=== PATIENT | male | born 1945 | race Hispanic/Latino ===

== ENCOUNTER 2017-06-30 13:05 | Emergency (ER) | payer MEDICARE ==
[2017-06-30 13:15] VITALS: RESP 18
--- NOTE | 2017-06-30 13:36 | ED PDOC ---
Upper Extremity Pain/Injury Time Seen by Provider: 06/30/17 13:20 Chief Complaint (Nursing): Finger,Hand,&Wrist Chief Complaint (Provider): Right Finger Injury History Per: Patient History/Exam Limitations: no limitations Onset/Duration Of Symptoms: Mins Current Symptoms Are (Timing): Still Present Additional Complaint(s): Modesto Parmar is a 71 year old right hand dominant male that presents to the ED after the second digit on his right hand was crushed under a hand-operated forklift. Patient reports throbbing pain to his finger, has no range of motion to the digit, and is actively bleeding. Tetanus not UTD. Past Medical History Reviewed: Historical Data, Nursing Documentation, Vital Signs Vital Signs: Last Vital Signs Temp 97 F L 06/30/17 13:11 Pulse 96 H 06/30/17 13:11 Resp 18 06/30/17 13:11 BP 143/88 06/30/17 13:11 Pulse Ox 99 06/30/17 13:11 - Medical History PMH: HTN - Family History Family History: States: Unknown Family Hx - Immunization History Hx Tetanus Toxoid Vaccination: No - Allergies Allergies/Adverse Reactions: Allergies Allergy/AdvReac Type Severity Reaction Status Date / Time strawberry Allergy RASH Verified 06/30/17 13:11 Review of Systems Musculoskeletal: Positive for: Hand Pain (second digit of right hand pain) Physical Exam - Reviewed Nursing Documentation Reviewed: Yes Vital Signs Reviewed: Yes - Physical Exam Appears: Positive for: Non-toxic, No Acute Distress Head Exam: Positive for: ATRAUMATIC, NORMOCEPHALIC Skin: Positive for: Normal Color, Warm Eye Exam: Positive for: Normal appearance, EOMI, PERRL Pulses-Radial (L): 2+ Pulses-Radial (R): 2+ Extremity: Positive for: Swelling (second digit of right hand), Other (Evidence of full separation noted to second digit on dorsal aspect of finger, volar aspect is intact. Injury to muscle, questionable complete avulsion of the bone. ). Negative for: Normal ROM (no ROM to second digit of right hand) - Laboratory Results Result Diagrams: 06/30/17 14:10 06/30/17 14:10 - ECG O2 Sat by Pulse Oximetry: 99 (RA) Pulse Ox Interpretation: Normal Medical Decision Making Medical Decision Making: Impression: Injury to Second Digit of Right Hand Plan: * X-Ray Right Hand * Toradol 30 mg IV * Type and Screen * CMP * CBC * PTT * PT * Reevaluation 13:36 Patient close to vasovagal syncope while being brought to X-Ray. Patient brought back to Holding, given O2 and IV fluids. 13:54 Patient developed chest pain and palpitations likely due to anxiety, will be checking troponin. 14:10 Dr. Aguayo spoke to Dr. Harden, who stated that [facility] does not have the appropriate microscopic equipment needed for microscopic implantation at this time, requiring the patient to be transferred. Dr. Aguayo then spoke to [facility], patient is pending possible transfer. Patient's EKG NSR with rate 71, normal QRS. Patient is stable. 14:55 Dr. Alvarado at [facility] was contacted by Dr. Aguayo at 14:15, declined transfer. Dr. Aguayo then called [facility], spoke to ER, plastic specialist was paged at 14:20 and 14:45. Call was now placed to [facility]. 15:10 Dr. Aguayo spoke to [facility], Dr. Shahid, hand surgeon, will accept patient. Patient will be an ER to ER transfer. 15:26 Patient will be given Ancef. pt is stable for transfer Scribe Attestation: Documented by Gianna Pollock, acting as a scribe for Erica Raphael PA-C. Provider Scribe Attestation: All medical record entries made by the Scribe were at my direction and personally dictated by me. I have reviewed the chart and agree that the record accurately reflects my personal performance of the history, physical exam, medical decision making, and the department course for this patient. I have also personally directed, reviewed, and agree with the discharge instructions and disposition. Disposition - Clinical Impression Clinical Impression: Amputation finger - Patient ED Disposition Is Patient to be Admitted: Yes - Disposition Disposition: Other Institution Disposition Time: 15:49 Condition: STABLE Forms: [employer] (Hungarian)
[2017-06-30] MEDS ORDERED: Sodium Chloride 0.9% 1,000 ML IV SCH (13:45)
[2017-06-30] MEDS ORDERED: Lidocaine 1% Inj (20ml) ONE (13:46)
[2017-06-30 14:23] VITALS: TEMP 98
--- NOTE | 2017-06-30 14:30 | RAD ---
PROCEDURE: Right Hand Radiographs. HISTORY: trauma attn fith digit COMPARISON: None. FINDINGS: BONES: Avulsion fracture distal phalanx 2nd digit. 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 SOFT TISSUES: Soft tissue swelling attests to the acuity of the fracture. OTHER FINDINGS: None. IMPRESSION: Acute fracture distal phalanx right 2nd digit.
[2017-06-30 14:32] LABS: BASO % 0.6 % (0.0-2.0); EOS # 0.3 K/uL (0.0-0.7); EOS % 3.2 % (0.0-4.0); HEMATOCRIT 39.3 % (35.0-51.0); LYMPH # 3.5 K/uL (1.0-4.3); LYMPH % 41.2 % (20.0-40.0); MEAN CELL VOLUME 88.7 fl (80.0-94.0); MEAN CORPUSCULAR HEMOGLOBIN 30.4 pg (27.0-31.0); MEAN CORPUSCULAR HGB CONC 34.2 g/dL (33.0-37.0); MEAN PLATELET VOLUME 7.4 fl (7.2-11.7); MONO # 0.7 K/uL (0.0-0.8); MONO % 8.6 % (0.0-10.0); NEUT # 3.9 K/uL (1.8-7.0); NEUT % 46.4 % (50.0-75.0); RED CELL DISTRIBUTION WIDTH 13.3 % (11.5-14.5); WHITE BLOOD COUNT 8.5 K/uL (4.8-10.8)
[2017-06-30 14:37] LABS: ALB/GLOB RATIO 1.4 (1.0-2.1); ALKALINE PHOSPHATASE 67 U/L (38-126); ALT/SGPT 24 U/L (21-72); AST/SGOT 21 U/L (17-59); BLOOD UREA NITROGEN 24 mg/dl (9-20); CALCIUM 9.3 mg/dL (8.4-10.2); CARBON DIOXIDE 22 mmol/L (22-30); CHLORIDE 104 mmol/L (98-107); GFR AFRICAN-AMERICAN > 60; GLUCOSE,RANDOM 108 mg/dL (75-110); SODIUM 138 mmol/l (132-148); TOTAL PROTEIN 7.1 G/DL (6.3-8.2)
[2017-06-30 14:47] LABS: PARTIAL THROMBOPLASTIN TIME 26.8 Seconds (25.6-37.1)
[2017-06-30 14:55] LABS: POTASSIUM 3.5 MMOL/L (3.6-5.0)
[2017-06-30] MEDS: ceFAZolin 1 GM in Sodium Chloride 0.9% 100 ML IVPB ONE ×2 (15:53→16:08)
--- NOTE | 2017-06-30 15:57 | RAD ---
HISTORY: medical eval COMPARISON: No prior. FINDINGS: LUNGS: No active pulmonary disease. PLEURA: No significant pleural effusion identified, no pneumothorax apparent. CARDIOVASCULAR: No radiographic findings to suggest acute or significant cardiovascular disease. OSSEOUS STRUCTURES: No significant abnormalities. VISUALIZED UPPER ABDOMEN: Normal. OTHER FINDINGS: None. IMPRESSION: No active disease.
[2017-06-30 16:13] VITALS: BP 122/81; PULSE 72; O2SAT 100
--- NOTE | 2017-07-02 11:19 | CARD ---
APPROVED REPORT EKG Measurement Heart [id number] <Conclusion> Normal sinus rhythm Normal ECG
== END 2017-06-30 16:13 | disposition short-term general hospital (02) ==
LOC: H.ER 13:05
DX: S68.620A Partial traumatic transphalangeal amputation of right index finger, initial encounter (principal); W24.0XXA Contact with lifting devices, not elsewhere classified, initial encounter; Y92.89 Other specified places as the place of occurrence of the external cause; I10 Essential (primary) hypertension; F41.9 Anxiety disorder, unspecified; R42 Dizziness and giddiness
CPT/HCPCS: 71010; 73130; 80053; 84484; 85025; 85610; 85730; 86850; 86900; 90471; 90715; 93005; 96374; 99283; J1885; J7040